=== PATIENT | male | born 1995 | race African-American/Black ===

== ENCOUNTER 2017-08-21 09:46 | Emergency (ER) | payer MEDICAID ==
[~2017-08-21] VITALS: Ht 177.8 cm; Wt 77.0 kg
[2017-08-21] MEDS ORDERED: MORPHINE SULFATE 4 MG/ML CPJ (NOT FOR IM USE) IV STA (10:24)
[2017-08-21] MEDS ORDERED: ONDANSETRON HCL 4MG/2ML VIAL IV STA (10:24)
[2017-08-21] MEDS ORDERED: SODIUM CHLORIDE 0.9% 1,000 ML IV ONE (10:24)
[2017-08-21] MEDS ORDERED: TETANUS, DIPHTHERIA, PERTUSSIS VAC/PF 0.5ML (>7YR OLD) IM ONE (10:30)
[2017-08-21] MEDS ORDERED: KETOROLAC 30MG/ML VIAL IV ONE (13:15)
[2017-08-21 15:27] VITALS: BP 127/68
== END 2017-08-21 15:29 | disposition home or self-care (01) ==
LOC: ER 09:46
DX: S49.81XA Other specified injuries of right shoulder and upper arm, initial encounter (principal); S59.801A Other specified injuries of right elbow, initial encounter; S80.212A Abrasion, left knee, initial encounter; S90.512A Abrasion, left ankle, initial encounter; M54.89 Other dorsalgia; S89.92XA Unspecified injury of left lower leg, initial encounter; I10 Essential (primary) hypertension; F12.10 Cannabis abuse, uncomplicated; V29.49XA Motorcycle driver injured in collision with other motor vehicles in traffic accident, initial encounter; Y93.89 Activity, other specified; Y92.488 Other paved roadways as the place of occurrence of the external cause
CPT/HCPCS: 70450; 71250; 72125; 73030; 73080; 73521; 73562; 73590; 73610; 73630; 90471; 90715; 96374; 96375; 99285; J1885; J2270; J2405; J7030; L1830; Z7610

== ENCOUNTER 2018-08-11 10:00 | Emergency (ER) | payer MEDICAID ==
[~2018-08-11] VITALS: Ht 172.7 cm; Wt 70.0 kg
[2018-08-11] MEDS ORDERED: MORPHINE SULFATE 10 MG/ML CPJ IM ONE (11:00)
[2018-08-11] MEDS ORDERED: BACITRACIN ZINC OINT UDPKT TOP ONE (11:15)
[2018-08-11 12:36] VITALS: BP 124/78
== END 2018-08-11 12:38 | disposition home or self-care (01) ==
LOC: ER 10:00
DX: S22.32XA Fracture of one rib, left side, initial encounter for closed fracture (principal); F12.10 Cannabis abuse, uncomplicated; V29.9XXA Motorcycle rider (driver) (passenger) injured in unspecified traffic accident, initial encounter; Y93.89 Activity, other specified; Y92.488 Other paved roadways as the place of occurrence of the external cause
CPT/HCPCS: 71045; 96372; 99283; J2270